=== PATIENT | female | born 1995 | race Caucasian/White ===

== ENCOUNTER 2018-08-25 18:00 | Emergency (ER) | payer OTHER ==
[2018-08-25] MEDS: ACETAMINOPHEN 500 MG TAB PO (18:55)
[2018-08-25] MEDS: DEXAMETHASONE 10 MG/ML 1 ML INJ IM (18:55)
[2018-08-25] MEDS: SOD CHLORIDE 0.9% 1,000 ML IV (19:02)
[2018-08-25] MEDS: KETOROLAC 30 MG INJ IV (19:18)
[2018-08-25] MEDS: ONDANSETRON 4 MG INJ IV (19:18)
== END 2018-08-25 19:55 | disposition home or self-care (01) ==
LOC: FTE 18:00
DX: J02.9 Acute pharyngitis, unspecified (principal)
CPT/HCPCS: 81025; 87430; 87880; 96361; 96372; 96374; 99284-25